=== PATIENT | female | born 1995 | race Caucasian/White ===

== ENCOUNTER 2016-10-21 09:36 | Emergency (ER) | payer MEDICAID, OTHER ==
[~2016-10-21] VITALS: Ht 152.4 cm; Wt 43.0 kg
[~2016-10-21 09:36] MED LIST: ALBU1AER INH; ANAP550T OR; ATEN-100 PO; ERYT2GEL2 TOP; FLOV110A INH; LACT4500 PO; MINO50TA PO; OGESTAB PO; PROC10TA4 PO; SPAC1MIS; SUMA25 PO; TRENTINOIN TOP
[2016-10-21 09:43] VITALS: BP 117/80; PULSE 97; RESP 16; TEMP 98.1; O2SAT 100
[2016-10-21] MEDS ORDERED: FLUTI44I INH (10:01)
[2016-10-21] MEDS ORDERED: ALBUAER3 INH (10:01)
[2016-10-21] MEDS ORDERED: BIRTH CONTROL PILLS (10:01)
[2016-10-21] MEDS ORDERED: CETI10CA3 PO (10:01)
--- NOTE | 2016-10-21 10:06 | PD ---
HPI Chief Complaint: Fall Time Seen by Provider: 09:50 Travel History International Travel<30 days: No Contact w/Intl Traveler<30days: No Traveled to known affect area: No History of Present Illness HPI This patient tripped and fell while at a grocery store. She landed on her left hip. She also complains of injury to her right ankle. Severity is mild. Duration 2 hours. PFSH Past Medical History Asthma: Yes Cardiovascular Problems: Yes (MVP) Diminished Hearing: Yes (25% HEARING LOSS IN LT EAR) Musculoskeletal: Yes (SCOLIOSIS) Psychiatric: Yes (PANIC ATTACKS) Respiratory: Yes (asthma) Integumentary: Yes (ACNE TREATMENT) Immunizations Current: Yes Influenza Vaccination: No ?: Not LMP: 09/28/16 Ovarian Cysts: Yes (LEFT SIDE) Past Surgical History Surgical History: No Previous Surgery Social History Alcohol Use: No Tobacco Use: No Substance Use: No Allergies-Medications (Allergen,Severity, Reaction): Coded Allergies: amoxicillin (Unverified Allergy, Severe, RASH, 10/21/16) Rash all over body clavulanic acid (Unverified Allergy, Severe, RASH, 10/21/16) Rash all over body acetaminophen (Unverified Allergy, Intermediate, vomiting, 10/21/16) hydrocodone (Unverified Allergy, Intermediate, vomiting, 10/21/16) lactose (Unverified Allergy, Intermediate, Nausea/Vomiting, 10/21/16) Uncoded Allergies: NYQUIL OR VICS (Allergy, Severe, ANAPHYLAXIS, 10/21/16) . Reported Meds & Prescriptions Reported Meds & Active Scripts Active Proair Hfa (Albuterol Sulfate) 8.5 Gm Aero 1 Puff INH Q4 PRN * SHAKE WELL BEFORE USE * Anaprox Ds (Naproxen Sodium) 550 Mg Tab 550 Mg OR BID PRN Imitrex 25 Mg Tab (Sumatriptan Succinate) 25 Mg Tab 25 Mg PO DAILY PRN Flovent Hfa (Fluticasone Propionate) 110 Mcg Aer 1 Puff INH BID Ogestrel #28/Pkg (Use For Ovral) (Ethinyl Estradiol/Norgestrel) Tab 1 Tab PO DAILY Atenolol 25 Mg Tab 25 Mg PO DAILY Aerovent Plus Holding Clementina (Spacer/Aerosol-Holding Chamber) 1 Mis Mis Units Compazine (Prochlorperazine Maleate) 10 Mg Tab 10 Mg PO Q6 PRN Take 1 tablet by mouth every 6 hours as needed for nausea and/or vomiting (generic for compazine) Reported [Trentinoin] 0.025 % TOP BID Erygel (Erythromycin) 2 % Gel 2 % TOP DIRECTED Minocycline Hcl (Minocycline HCl) 50 Mg Tab 50 Mg PO BID Lactaid (Lactase) Chw 1 PO BIDPRN Review of Systems General / Constitutional: No: Fever HENT: No: Headaches Cardiovascular: No: Chest Pain or Discomfort Physical Exam Narrative Right ankle: Tenderness or bruising or swelling. Good range of motion GASTROINTESTINAL: Abdomen soft, non-tender, nondistended. Positive bowel sounds. No hepato-splenomegaly, or palpable masses. No guarding. Back: She has scoliosis but no tenderness or bruising or swelling. Good range of motion of both hips Data Data Last Documented VS Vital Signs Date Time Temp Pulse Resp B/P (MAP) Pulse Ox O2 Delivery O2 Flow Rate FiO2 10/21/16 09:43 98.1 97 16 117/80 (92) 100 MDM Medical Decision Making Medical Screen Exam Complete: Yes Emergency Medical Condition: Yes Medical Record Reviewed: Yes Differential Diagnosis Contusion, sprain, fracture Narrative Course I have reviewed the patient's electronic medical record. Patient's exam doesn't reveal any objective findings other than her chronic scoliosis. I don't think her back or ankle require x-rays I observed to ambulate without discomfort. Diagnosis Primary Impression: Back strain Qualified Codes: S39.012A - Strain of muscle, fascia and tendon of lower back , initial encounter Additional Impression: Scoliosis of thoracic spine Additional Instructions: The patient was advised to follow up with their physician and return if they worsen. Med/Other Pt SpecificInfo: Other Disposition: 01 DISCHARGE HOME Condition: Stable Rja Dacosta MD Oct 21, 2016 10:06
[2016-11-02] MEDS ORDERED: OGESTAB PO (09:02)
== END 2016-10-21 10:33 | disposition home or self-care (01) ==
LOC: PHED 09:36
DX: S39.012A Strain of muscle, fascia and tendon of lower back, initial encounter (principal); M41.9 Scoliosis, unspecified; J45.909 Unspecified asthma, uncomplicated; Z88.0 Allergy status to penicillin; W01.0XXA Fall on same level from slipping, tripping and stumbling without subsequent striking against object, initial encounter; Y92.512 Supermarket, store or market as the place of occurrence of the external cause; H91.92 Unspecified hearing loss, left ear
CPT/HCPCS: 99281